=== PATIENT | male | born 1995 | race Caucasian/White ===

== ENCOUNTER → 2023-07-01 | Emergency (ER) | payer OTHER ==
[~2023-07-01] VITALS: Ht 188 cm; Wt 191.4 kg
[~2023-07-01] MED LIST: TDAP [DIPH/PERTUSSIS/TET] 0.5 ML VIAL IM ONE
[2023-07-01 16:19] VITALS: BP 156/95; TEMP 98; O2SAT 97
== END | disposition home or self-care (01) ==
LOC: ER 15:14
DX: S61.011A Laceration without foreign body of right thumb without damage to nail, initial encounter (principal); I10 Essential (primary) hypertension; J45.909 Unspecified asthma, uncomplicated; W26.8XXA Contact with other sharp object(s), not elsewhere classified, initial encounter; Y93.89 Activity, other specified; Y92.89 Other specified places as the place of occurrence of the external cause; Y99.8 Other external cause status
CPT/HCPCS: 90715